=== PATIENT | female | born 1965 | race Caucasian/White ===

== ENCOUNTER 2017-10-31 10:08 | Inpatient (IN) | payer MEDICARE, MEDICAID ==
[2017-10-31] VITALS (8 sets, daily range): BP systolic 119–159; BP diastolic 70–97
[~2017-10-31] VITALS: Ht 149.9 cm; Wt 90.0 kg
[~2017-10-31 10:08] MED LIST: ESCI5TAB PO; GABA-531 PO; LURA40 PO; QUET300T2 PO
[2017-10-31] MEDS ORDERED: LOPERAMIDE HCL 2 MG CAPSULE PO PRN (12:15)
[2017-10-31] MEDS ORDERED: LORazepam 2 MG TABLET PO PRN ×2 (12:15→13:45)
[2017-10-31] MEDS ORDERED: PROMETHAZINE HCL 25 MG TABLET PO PRN (12:15)
[2017-10-31] MEDS ORDERED: QUEtiapine FUMARATE 100 MG TABLET PO PRN (12:15)
[2017-10-31] MEDS ORDERED: MAG HYDROX/AL HYDROX/SIMETH ES 30 ML SUSPENSION UDCUP PO PRN (12:15)
[2017-10-31] MEDS ORDERED: ACETAMINOPHEN 325 MG TABLET PO PRN (12:15)
[2017-10-31] MEDS ORDERED: HydrOXYzine PAMOATE 50 MG CAPSULE PO PRN (12:15)
[2017-10-31] MEDS ORDERED: ZOLPIDEM TARTRATE 10 MG TABLET PO PRN (12:15)
[2017-10-31] MEDS ORDERED: GuaiFENesin/D-METHORPHAN [SUGAR-FREE] 200-20MG/10 ML SYRUP UDCUP PO PRN (12:15)
[2017-10-31] MEDS ORDERED: TUBERCULIN, PURIFIED PROTEIN DERIVATIVE 5 TU/0.1 ML SYG ID ONE (12:15)
[2017-10-31] MEDS ORDERED: ESCI10TA PO (13:08)
[2017-10-31] MEDS ORDERED: AmLODIPine BESYLATE 2.5 MG TABLET PO SCH (14:00)
[2017-10-31] MEDS ORDERED: CloNIDine HCL 0.1 MG TABLET PO PRN (14:00)
[2017-10-31] MEDS: GABAPENTIN 300 MG CAPSULE PO SCH ×3 (14:41→21:06)
[2017-10-31] MEDS ORDERED: PNEUMOCOCCAL VACCINE POLYVALENT 0.5 ML VIAL [PPSV23] IM ONE (14:45)
[2017-10-31] MEDS: THIAMINE HCL 100 MG TABLET PO SCH (16:46)
[2017-10-31] MEDS: MAGNESIUM HYDROXIDE SUSPENSION 30 ML UDCUP PO PRN (16:58)
[2017-10-31] MEDS ORDERED: QUEtiapine FUMARATE 200 MG TABLET PO SCH (21:00)
[2017-10-31] MEDS ORDERED: ESCITALOPRAM OXALATE 10 MG TABLET PO SCH (21:00)
[2017-11-01 00:15] VITALS: BP 123/75
[2017-11-01 04:15] VITALS: BP 111/78
[2017-11-01] MEDS: MAGNESIUM HYDROXIDE SUSPENSION 30 ML UDCUP PO PRN (06:58)
[2017-11-01] MEDS ORDERED: LORazepam 2 MG TABLET PO PRN (07:00)
[2017-11-01 08:21] LABS: BASOPHILS % (AUTO) 0.8 % (0.0-2.0); HEMATOCRIT 41.9 % (36-46); HEMOGLOBIN 14.5 g/dL (12.0-16.0); LYMPHOCYTES # (AUTO) 2.5 K/uL (1.0-4.8); LYMPHOCYTES % (AUTO) 42.8 % (22.0-44.0); MEAN CORPUSCULAR HEMOGLOBIN 31.2 pg (26.0-34.0); MEAN CORPUSCULAR HGB CONC 34.7 G/dL (31.0-37.0); MEAN CORPUSCULAR VOLUME 90 fL (80-100); MONOCYTES # (AUTO) 0.5 K/uL (0.1-1.0); MONOCYTES % (AUTO) 8.2 % (2.0-9.0); NEUTROPHILS # (AUTO) 2.6 K/uL (1.8-7.7); NEUTROPHILS % (AUTO) 44.2 % (40.0-70.0); PLATELET COUNT (AUTO) 258 K/uL (150-450); RED BLOOD CELL COUNT(AUTO) 4.66 MIL/uL (4.00-5.20); RED CELL DISTRIBUTION WIDTH 13.4 % (11.5-14.5)
[2017-11-01] MEDS: THIAMINE HCL 100 MG TABLET PO SCH ×2 (08:22→16:43)
[2017-11-01] MEDS: LORazepam 2 MG TABLET PO SCH ×4 (08:22→20:34)
[2017-11-01] MEDS: FOLIC ACID 1 MG TABLET PO SCH (08:22)
[2017-11-01] MEDS: MULTIVITAMINS WITH MINERALS, THERAPEUTIC TABLET PO SCH (08:22)
[2017-11-01] MEDS: NALTREXONE HCL 50 MG TABLET PO SCH (08:22)
[2017-11-01] MEDS: LISINOPRIL 5 MG TABLET PO SCH (08:22)
[2017-11-01] MEDS: GABAPENTIN 300 MG CAPSULE PO SCH ×4 (08:22→20:35)
[2017-11-01 08:33] VITALS: BP 121/89
[2017-11-01 09:05] LABS: FOLATE SERUM 4.7 ng/mL (5.4-)
[2017-11-01 09:13] LABS: HEMOGLOBIN A1C 6.5 % (4.5-6.2)
[2017-11-01 09:24] LABS: ALANINE AMINOTRANSFERASE 28 U/L (12-78); ALBUMIN 3.3 g/dL (3.4-5.0); ALKALINE PHOSPHATASE 83 U/L (46-116); ANION GAP 7 mmol/L (8-16); ASPARTATE AMINOTRANSFERASE 23 U/L (15-37); BILIRUBIN,TOTAL 0.7 mg/dL (0.1-1.0); CALCIUM, TOTAL 8.7 mg/dL (8.8-10.5); CARBON DIOXIDE 28 mmol/L (22-29); CHLORIDE 107 mmol/L (98-107); CHOL/HDL RATIO 5.9 (3.9-5.7); CHOLESTEROL 190 mg/dL (131-200); CREATINE KINASE MB 1.8 ng/mL (0-5); CREATINE KINASE, TOTAL 141 U/L (26-192); CREATININE 0.69 mg/dL (0.60-1.30); FREE T4 (FREE THYROXINE) 0.95 ng/dL (0.76-1.46); GLOMERULAR FILTR. RATE CALC > 60 mL/min (>60); GLUCOSE,RANDOM 113 mg/dL (70-110); HDL CHOLESTEROL 32 mg/dL (40-60); LDL CHOL (CALC.) 114 mg/dL (0-130); POTASSIUM 3.7 mmol/L (3.5-5.1); SODIUM SERUM 142 mmol/L (136-145); THYROID STIMULATING HORMONE 1.11 uIU/mL (0.36-3.74); TOTAL PROTEIN, SERUM 6.7 g/dL (6.4-8.2); TRIGLYCERIDES 220 mg/dL (15-150); UREA NITROGEN, BLOOD 15 mg/dL (7-18)
[2017-11-01 12:34] VITALS: BP 123/64
[2017-11-01 16:06] VITALS: BP 138/86
[2017-11-01 16:12] VITALS: BP 135/86
[2017-11-01] MEDS ORDERED: GLUCAGON,HUMAN RECOMBINANT 1 MG VIAL IM PRN (18:15)
[2017-11-01] MEDS ORDERED: QUEtiapine FUMARATE 300 MG TABLET PO SCH (21:00)
[2017-11-01] MEDS: INSULIN LISPRO 100 UNITS/ML SQ PRN (21:45)
[2017-11-01 21:49] LABS: GLUCOMETER DEV NAME(LOC) BV2N3; GLUCOSE,POINT OF CARE 171 MG/DL (70-110)
[2017-11-02 06:17] LABS: GLUCOMETER DEV NAME(LOC) BV2N3; GLUCOSE,POINT OF CARE 134 MG/DL (70-110)
[2017-11-02 07:22] VITALS: BP 118/71
[2017-11-02 08:45] VITALS: BP 131/88
[2017-11-02] MEDS: MULTIVITAMINS WITH MINERALS, THERAPEUTIC TABLET PO SCH (08:49)
[2017-11-02] MEDS: CHOLECALCIFEROL (VIT D3) 2,000 UNITS TABLET PO SCH (08:49)
[2017-11-02] MEDS: GABAPENTIN 300 MG CAPSULE PO SCH ×4 (08:50→20:47)
[2017-11-02] MEDS: LISINOPRIL 5 MG TABLET PO SCH (08:50)
[2017-11-02] MEDS: THIAMINE HCL 100 MG TABLET PO SCH ×2 (08:50→16:41)
[2017-11-02] MEDS: NALTREXONE HCL 50 MG TABLET PO SCH (08:50)
[2017-11-02] MEDS: LORazepam 2 MG TABLET PO SCH ×4 (08:50→20:46)
[2017-11-02] MEDS: FOLIC ACID 1 MG TABLET PO SCH (08:50)
[2017-11-02] MEDS: INSULIN LISPRO 100 UNITS/ML SQ PRN ×2 (11:12→20:54)
[2017-11-02 11:28] LABS: GLUCOMETER DEV NAME(LOC) BV2N3; GLUCOSE,POINT OF CARE 146 MG/DL (70-110)
[2017-11-02 16:00] VITALS: BP 136/86
[2017-11-02] MEDS ORDERED: FLUCONAZOLE 150 MG TABLET PO ONE (16:00)
[2017-11-02 16:06] VITALS: BP 136/86
[2017-11-02 16:33] LABS: GLUCOMETER DEV NAME(LOC) BV2N3; GLUCOSE,POINT OF CARE 127 MG/DL (70-110)
[2017-11-02] MEDS: MetroNIDAZOLE 500 MG TABLET PO SCH (16:41)
[2017-11-02 20:38] LABS: GLUCOMETER DEV NAME(LOC) BV2N3; GLUCOSE,POINT OF CARE 163 MG/DL (70-110)
[2017-11-02] MEDS ORDERED: QUEtiapine FUMARATE 200 MG TABLET PO SCH (21:00)
[2017-11-03 06:23] VITALS: BP 117/88
[2017-11-03 06:23] LABS: GLUCOMETER DEV NAME(LOC) BV2N3; GLUCOSE,POINT OF CARE 111 MG/DL (70-110)
[2017-11-03] MEDS ORDERED: LORazepam 1 MG TABLET PO PRN (07:00)
[2017-11-03 08:10] VITALS: BP 123/65
[2017-11-03 08:19] VITALS: BP 123/65
[2017-11-03] MEDS: MetroNIDAZOLE 500 MG TABLET PO SCH ×2 (08:41→16:42)
[2017-11-03] MEDS: NALTREXONE HCL 50 MG TABLET PO SCH (08:41)
[2017-11-03] MEDS: MULTIVITAMINS WITH MINERALS, THERAPEUTIC TABLET PO SCH (08:41)
[2017-11-03] MEDS: GABAPENTIN 300 MG CAPSULE PO SCH ×4 (08:41→20:45)
[2017-11-03] MEDS: THIAMINE HCL 100 MG TABLET PO SCH ×2 (08:41→16:42)
[2017-11-03] MEDS: LISINOPRIL 5 MG TABLET PO SCH (08:41)
[2017-11-03] MEDS: FOLIC ACID 1 MG TABLET PO SCH (08:41)
[2017-11-03] MEDS: CHOLECALCIFEROL (VIT D3) 2,000 UNITS TABLET PO SCH (08:41)
[2017-11-03] MEDS: LORazepam 1 MG TABLET PO SCH ×4 (08:42→20:45)
[2017-11-03] MEDS: INSULIN LISPRO 100 UNITS/ML SQ PRN ×3 (11:13→21:09)
[2017-11-03 11:18] LABS: GLUCOMETER DEV NAME(LOC) BV2N3; GLUCOSE,POINT OF CARE 151 MG/DL (70-110)
[2017-11-03 16:06] VITALS: BP 126/81
[2017-11-03 16:39] LABS: GLUCOMETER DEV NAME(LOC) BV2N3; GLUCOSE,POINT OF CARE 141 MG/DL (70-110)
[2017-11-03 17:31] VITALS: BP 118/84
[2017-11-03] MEDS ORDERED: QUEtiapine FUMARATE 200 MG TABLET PO SCH (21:00)
[2017-11-03 21:04] LABS: GLUCOMETER DEV NAME(LOC) BV2N3; GLUCOSE,POINT OF CARE 173 MG/DL (70-110)
[2017-11-04 01:31] VITALS: BP 111/83
[2017-11-04 06:34] LABS: GLUCOMETER DEV NAME(LOC) BV2N3; GLUCOSE,POINT OF CARE 139 MG/DL (70-110)
[2017-11-04] MEDS ORDERED: MetFORMIN HCL 500 MG TABLET PO SCH (07:00)
[2017-11-04] MEDS ORDERED: LORazepam 1 MG TABLET PO PRN (07:00)
[2017-11-04 08:28] VITALS: BP 108/61
[2017-11-04 08:49] VITALS: BP 114/74
[2017-11-04] MEDS: LISINOPRIL 5 MG TABLET PO SCH (08:49)
[2017-11-04] MEDS: NALTREXONE HCL 50 MG TABLET PO SCH (08:49)
[2017-11-04] MEDS: CHOLECALCIFEROL (VIT D3) 2,000 UNITS TABLET PO SCH (08:50)
[2017-11-04] MEDS: GABAPENTIN 300 MG CAPSULE PO SCH ×3 (08:50→16:07)
[2017-11-04] MEDS: MetroNIDAZOLE 500 MG TABLET PO SCH ×2 (08:51→16:07)
[2017-11-04] MEDS: MULTIVITAMINS WITH MINERALS, THERAPEUTIC TABLET PO SCH (08:52)
[2017-11-04] MEDS: THIAMINE HCL 100 MG TABLET PO SCH ×2 (08:52→16:07)
[2017-11-04] MEDS: FOLIC ACID 1 MG TABLET PO SCH (08:52)
[2017-11-04 11:28] LABS: GLUCOMETER DEV NAME(LOC) BV2N3; GLUCOSE,POINT OF CARE 180 MG/DL (70-110)
[2017-11-04] MEDS: INSULIN LISPRO 100 UNITS/ML SQ PRN ×2 (11:32→16:36)
[2017-11-04] MEDS ORDERED: GABA-531 PO (15:36)
[2017-11-04] MEDS ORDERED: NALT50TA PO (15:36)
[2017-11-04] MEDS ORDERED: QUET200T29 PO (15:36)
[2017-11-04 16:07] VITALS: BP 130/84
[2017-11-04] MEDS ORDERED: QUET200T PO (16:27)
[2017-11-04] MEDS ORDERED: NALT50TA6 PO (16:28)
[2017-11-04] MEDS ORDERED: THIA100T67 PO (16:33)
[2017-11-04] MEDS ORDERED: METR500 PO (16:33)
[2017-11-04] MEDS ORDERED: CHOL200016 PO (16:33)
[2017-11-04] MEDS ORDERED: METF500T6 PO (16:33)
[2017-11-04] MEDS ORDERED: FOLI1 PO (16:33)
[2017-11-04] MEDS ORDERED: LISI-660 PO (16:33)
[2017-11-04 16:37] LABS: GLUCOMETER DEV NAME(LOC) BV2N3; GLUCOSE,POINT OF CARE 149 MG/DL (70-110)
== END 2017-11-04 18:45 | disposition home or self-care (01) | DRG 885 ==
LOC: B2X 12:46
PROVIDERS: ADMIT Psychiatry & Neurology Psychiatry; ATTEND Psychiatry & Neurology Psychiatry
DX: F25.9 Schizoaffective disorder, unspecified (principal); Z68.41 Body mass index [BMI] 40.0-44.9, adult; B37.3 Candidiasis of vulva and vagina; B96.89 Other specified bacterial agents as the cause of diseases classified elsewhere; E55.9 Vitamin D deficiency, unspecified; E11.9 Type 2 diabetes mellitus without complications; E78.1 Pure hyperglyceridemia; E78.5 Hyperlipidemia, unspecified; E87.6 Hypokalemia; F22 Delusional disorders; F41.0 Panic disorder [episodic paroxysmal anxiety]; N76.0 Acute vaginitis; G89.4 Chronic pain syndrome; I10 Essential (primary) hypertension; K21.9 Gastro-esophageal reflux disease without esophagitis; K22.70 Barrett's esophagus without dysplasia; E66.9 Obesity, unspecified; M79.7 Fibromyalgia; Z98.891 History of uterine scar from previous surgery; Z79.899 Other long term (current) drug therapy; Z91.19 Patient's noncompliance with other medical treatment and regimen; Z91.5 Personal history of self-harm; Z80.8 Family history of malignant neoplasm of other organs or systems; Z82.49 Family history of ischemic heart disease and other diseases of the circulatory system
CPT/HCPCS: 80074; 82306; 82607; 82746; 83036; 83735; 84439; 84443